=== PATIENT | female | born 1980 | race Caucasian/White ===

== ENCOUNTER 2016-10-13 00:15 | Emergency (ER) | payer OTHER ==
[~2016-10-13] VITALS: Ht 157.5 cm; Wt 81.6 kg
[~2016-10-13 00:15] MED LIST: HYDR-2758 PO; birth control
[2016-10-13 00:21] VITALS: BP 152/84
[2016-10-13] MEDS ORDERED: CLIN300C8 PO (00:25)
--- NOTE | 2016-10-13 00:26 | PHYS DOC ---
Past Medical History Past Medical History: Arthritis, Asthma, Depression, IBS Additional Past Medical Histor: DDD, spinal stenosis,back pain Past Surgical History: Cholecystectomy, Alcohol Use: None Drug Use: None Adult General Chief Complaint Chief Complaint: DENTAL PROBLEM HPI HPI Patient is a 36 year old female presents to the emergency department with complaints of dental pain. She states she's had chronic dental pain and has had increasing discomfort for the last 2 weeks. She states she is scheduled for dental surgery in January. She reports no fever, difficulty with swallowing or phonation. Review of Systems Review of Systems Constitutional: Denies fever or chills [] Eyes: Denies change in visual acuity, redness, or eye pain [] HENT: Denies nasal congestion or sore throat, dental pain [] Respiratory: Denies cough or shortness of breath [] Cardiovascular: No additional information not addressed in HPI [] GI: Denies abdominal pain, nausea, vomiting, bloody stools or diarrhea [] : Denies dysuria or hematuria [] Musculoskeletal: Denies back pain or joint pain [] Integument: Denies rash or skin lesions [] Neurologic: Denies headache, focal weakness or sensory changes [] Endocrine: Denies polyuria or polydipsia [] Allergies Allergies Allergies Coded Allergies Type Severity Reaction Last Updated Verified azithromycin Allergy Severe angio edema 12/11/14 No cyclobenzaprine Allergy Severe angio edema 12/11/14 No prochlorperazine Allergy Severe angio edema 12/11/14 No codeine Allergy Intermediate rash 12/11/14 No Physical Exam Physical Exam Constitutional: Well developed, well nourished, no acute distress, non-toxic appearance. [] HENT: Normocephalic, atraumatic, bilateral external ears normal, oropharynx moist, diffuse dental caries, with diffuse tenderness. There is minimal gingival erythema on the left lower aspect. Eyes: PERRLA, EOMI, conjunctiva normal, no discharge. [] Neck: Normal range of motion, no tenderness, supple, no lymphadenopathy Cardiovascular:Heart rate regular rhythm, no murmur [] Lungs & Thorax: Bilateral breath sounds clear to auscultation [] Abdomen: Bowel sounds normal, soft, no tenderness, no masses, no pulsatile masses. [] Skin: Warm, dry, no erythema, no rash. [] Back: No tenderness, no CVA tenderness. [] Extremities: No tenderness, no cyanosis, no clubbing, ROM intact, no edema. [] Neurologic: Alert and oriented X 3, normal motor function, normal sensory function, no focal deficits noted. [] Psychologic: Affect normal, judgement normal, mood normal. [] EKG EKG [] Radiology/Procedures Radiology/Procedures [] Course & Med Decision Making Course & Med Decision Making Pertinent Labs and Imaging studies reviewed. (See chart for details) [] Dragon Disclaimer Dragon Disclaimer This electronic medical record was generated, in whole or in part, using a voice recognition dictation system. Departure Departure Impression: Primary Impression: Odontalgia Disposition: HOME, SELF-CARE Condition: STABLE Referrals: RIANA BREWER MD (PCP) Patient Instructions: Dental Pain Additional Instructions: Continue ibuprofen and hydrocodone as previously directed and prescribed for chronic pain. Scripts Clindamycin Hcl (CLINDAMYCIN HCL) 300 Mg Capsule 1 CAP PO TID, #30 CAP Prov: MIESHA GUDINO APRN 10/13/16 MIESHA GUDINO APRN Oct 13, 2016 00:26
== END 2016-10-13 00:33 | disposition home or self-care (01) ==
LOC: ER 00:15
DX: K02.9 Dental caries, unspecified (principal); M19.90 Unspecified osteoarthritis, unspecified site; J45.909 Unspecified asthma, uncomplicated; F32.9 Major depressive disorder, single episode, unspecified; K58.9 Irritable bowel syndrome, unspecified; M48.00 Spinal stenosis, site unspecified; Z90.49 Acquired absence of other specified parts of digestive tract; Z88.1 Allergy status to other antibiotic agents; Z88.8 Allergy status to other drugs, medicaments and biological substances; Z88.5 Allergy status to narcotic agent
CPT/HCPCS: 99283

== ENCOUNTER 2017-01-12 02:03 | Emergency (ER) | payer OTHER ==
[~2017-01-12] VITALS: Ht 157.5 cm; Wt 83.9 kg
[~2017-01-12 02:03] MED LIST changes: +CLIN300C8 PO
--- NOTE | 2017-01-12 02:15 | PHYS DOC ---
Past Medical History Past Medical History: Arthritis, Asthma, Depression, IBS Additional Past Medical Histor: DDD, spinal stenosis,back pain Past Surgical History: Cholecystectomy, Alcohol Use: None Drug Use: None Adult General Chief Complaint Chief Complaint: LACERATION/AVULSION HPI HPI Patient is a 36 year old female who presents with cut on her left ring finger. She was given a knife out to make dinner and actually cut her hand. She states her last tetanus shot was May 2010. She states she ran water over it and held pressure on it bolus of make sure she she has again infection so she came to the ER. Review of Systems Review of Systems Constitutional: Denies fever or chills [] Eyes: Denies change in visual acuity, redness, or eye pain [] HENT: Denies nasal congestion or sore throat [] Respiratory: Denies cough or shortness of breath [] Cardiovascular: No additional information not addressed in HPI [] GI: Denies abdominal pain, nausea, vomiting, bloody stools or diarrhea [] : Denies dysuria or hematuria [] Musculoskeletal: Denies back pain or joint pain [] Integument: Denies rash or skin lesions [] Neurologic: Denies headache, focal weakness or sensory changes [] Endocrine: Denies polyuria or polydipsia [] Current Medications Current Medications Current Medications Medications (Trade) Dose Ordered Sig/Anibal Start Time Stop Time Status Last Admin Dose Admin Diphtheria/ Tetanus/Acell Pertussis (Boostrix) 0.5 ml ONCE ONCE 01/12/17 02:45 01/12/17 02:46 UNV Allergies Allergies Allergies Coded Allergies Type Severity Reaction Last Updated Verified azithromycin Allergy Severe angio edema 12/11/14 No cyclobenzaprine Allergy Severe angio edema 12/11/14 No prochlorperazine Allergy Severe angio edema 12/11/14 No codeine Allergy Intermediate rash 12/11/14 No Physical Exam Physical Exam Constitutional: Well developed, well nourished, no acute distress, non-toxic appearance. [] HENT: Normocephalic, atraumatic, bilateral external ears normal, oropharynx moist, no oral exudates, nose normal. [] Eyes: PERRLA, EOMI, conjunctiva normal, no discharge. [] Neck: Normal range of motion, no tenderness, supple, no stridor. [] Cardiovascular:Heart rate regular rhythm, no murmur [] Lungs & Thorax: Bilateral breath sounds clear to auscultation [] Abdomen: Bowel sounds normal, soft, no tenderness, no masses, no pulsatile masses. [] Skin: Warm, dry, no erythema, no rash. 7 mm laceration of the fourth digit on the left hand at the tip going from the palmar surface toward the nail Back: No tenderness, no CVA tenderness. [] Extremities: No tenderness, no cyanosis, no clubbing, ROM intact, no edema. [] Neurologic: Alert and oriented X 3, normal motor function, normal sensory function, no focal deficits noted. [] Psychologic: Affect normal, judgement normal, mood normal. [] Current Patient Data Vital Signs Vital Signs Date Time Temp Pulse Resp B/P (MAP) Pulse Ox O2 Delivery O2 Flow Rate FiO2 01/12/17 02:30 98.7 91 18 96 Room Air 98.7 EKG EKG [] Radiology/Procedures Radiology/Procedures [] Impressions: Finger laceration Course & Med Decision Making Course & Med Decision Making Pertinent Labs and Imaging studies reviewed. (See chart for details) We updated her tetanus, laceration was closed with Dermabond. Return precautions given. Dragon Disclaimer Dragon Disclaimer This electronic medical record was generated, in whole or in part, using a voice recognition dictation system. Departure Departure Impression: Primary Impression: Laceration Disposition: 01 HOME, SELF-CARE Condition: STABLE Referrals: RIANA BREWER MD (PCP) Patient Instructions: Laceration Care, Adult, [id number] Additional Instructions: Your laceration repaired with glue. This should follow off over the next 7-10 days. Please keep an eye on it for any signs of infection. If he becomes red swollen or painful please return back to emergency department. Laceration Repair Lac Repair Indication: Fourth digit laceration Procedure: The patient was placed in the appropriate position and the area was then sterile water. The laceration was and closed with Dermabond. The wound area was then dressed with Band-Aid. Total repaired wound length: 8 mm. The patient tolerated the procedure well. Complications: No complications noted. ANDREY ORTIZ MD Jan 12, 2017 02:15
[2017-01-12 02:30] VITALS: BP 152/87
[2017-01-12] MEDS ORDERED: DIPHTH,PERTUSS(ACELL),TET TOX 0.5 ML DISP.SYRIN. VAX IM ONE (03:00)
== END 2017-01-12 03:00 | disposition home or self-care (01) ==
LOC: ER 02:03
DX: S61.215A Laceration without foreign body of left ring finger without damage to nail, initial encounter (principal); J45.909 Unspecified asthma, uncomplicated; K58.9 Irritable bowel syndrome, unspecified; Z88.5 Allergy status to narcotic agent; Z88.1 Allergy status to other antibiotic agents; Z88.8 Allergy status to other drugs, medicaments and biological substances; W26.0XXA Contact with knife, initial encounter; Y93.89 Activity, other specified; Y99.8 Other external cause status; Y92.89 Other specified places as the place of occurrence of the external cause
CPT/HCPCS: 12001; 90471; 90715; 99283-25

== ENCOUNTER 2017-03-21 17:27 | Emergency (ER) | payer OTHER ==
[~2017-03-21] VITALS: Ht 160 cm; Wt 86.2 kg
[2017-03-21 17:35] VITALS: BP 137/80
--- NOTE | 2017-03-21 17:50 | PHYS DOC ---
Past Medical History Past Medical History: Arthritis, Asthma, Depression, IBS Additional Past Medical Histor: DDD, spinal stenosis,back pain Past Surgical History: Cholecystectomy, Alcohol Use: None Drug Use: None Adult General Chief Complaint Chief Complaint: FINGER INJURY HPI HPI Patient is a 36 year old female with history of arthritis asthma and depression who presents today with moderate pain to the right index finger after it got smashed in a car door today, patient states her pain is worse on flexion and extension of the finger though she is able to flex and extend the finger. Review of Systems Review of Systems Constitutional: Denies fever or chills [] Musculoskeletal: right index finger pain Integument: Denies rash or skin lesions [] Neurologic: Denies headache, focal weakness or sensory changes [] All other systems were reviewed and found to be within normal limits, except as documented in this note. Current Medications Current Medications Current Medications Medications (Trade) Dose Ordered Sig/Anibal Start Time Stop Time Status Last Admin Dose Admin Diphtheria/ Tetanus/Acell Pertussis (Boostrix) 0.5 ml ONCE ONCE 03/21/17 18:00 03/21/17 18:01 DC Ibuprofen (Motrin) 800 mg 1X ONCE 03/21/17 18:00 03/21/17 18:01 DC 03/21/17 18:03 800 MG Allergies Allergies Allergies Coded Allergies Type Severity Reaction Last Updated Verified azithromycin Allergy Severe angio edema 12/11/14 No cyclobenzaprine Allergy Severe angio edema 12/11/14 No prochlorperazine Allergy Severe angio edema 12/11/14 No codeine Allergy Intermediate rash 12/11/14 No Physical Exam Physical Exam Constitutional: Well developed, well nourished, no acute distress, non-toxic appearance. [] Skin: Warm, dry, no erythema, no rash. [] Back: No tenderness, no CVA tenderness. [] Extremities: Right index finger with bruising below the nail bed as well as a 5 % subungual hematoma. Tenderness on palpation of the distal end of the right index finger. Patient able to flex and extend the right index finger at the MIP PIP and DIP joints. Adequate radial sensation to the right index finger. +2 right radial pulse. Cap refill less than 2 seconds the right index finger. Neurologic: Alert and oriented X 3, normal motor function, normal sensory function, no focal deficits noted. [] Psychologic: Affect normal, judgement normal, mood normal. [] Current Patient Data Vital Signs Vital Signs Date Time Temp Pulse Resp B/P (MAP) Pulse Ox O2 Delivery O2 Flow Rate FiO2 03/21/17 17:35 98.2 100 18 99 Room Air 98.2 EKG EKG [] Radiology/Procedures Radiology/Procedures [] Course & Med Decision Making Course & Med Decision Making Pertinent Labs and Imaging studies reviewed. (See chart for details) Patient has right index finger contusion. Right index finger x-rays interpreted by Dr. Acevedo were negative for any acute findings. Tetanus vaccine was up-to- dated. Right index finger was splinted by the technical project manager neurovascular exam is intact. Patient will be discharged with instructions to follow-up with hand surgeon at Dr. Dominguez's office in 1 weeks as needed. Ice elevation encouraged. Anti-inflammatories recommended. Dragon Disclaimer Dragon Disclaimer This electronic medical record was generated, in whole or in part, using a voice recognition dictation system. Departure Departure Impression: Primary Impression: Subungual hematoma of finger Additional Impression: Contusion of finger, right Disposition: 01 HOME, SELF-CARE Condition: STABLE Referrals: RIANA BREWER MD (PCP) LIUDMILA DOMINGUEZ MD follow up with Dr. Astorga hand surgeon at DR. Dominguez's office in one week Patient Instructions: Contusion, Subungual Hematoma, [id number] Additional Instructions: You were seen with right index finger contusion. Ice and elevate the extremity. Apply Neosporin to the bruised area. Follow-up with orthopedic doctor provided in one week. Take [id number] anti-inflammatories as needed. Problem Qualifiers Primary Impression: Subungual hematoma of finger Encounter type: initial encounter Qualified Codes: S60.10XA - Contusion of unspecified finger with damage to nail, initial encounter Additional Impression: Contusion of finger, right Encounter type: initial encounter Finger: index finger Damage to nail status: without damage Qualified Codes: S60.021A - Contusion of right index finger without damage to nail, initial encounter TRACY HEWITT COPY READER Mar 21, 2017 17:50
[2017-03-21] MEDS ORDERED: IBUPROFEN 800 MG TABLET. PO ONE (18:00)
[2017-03-21] MEDS ORDERED: DIPHTH,PERTUSS(ACELL),TET TOX 0.5 ML DISP.SYRIN. VAX IM ONE (18:00)
--- NOTE | 2017-03-22 07:51 | RAD ---
THREE VIEWS right FINGER Clinical History: finger pain index , slammed in car door today. Technique: AP view of the hand, as well as lateral and oblique collimated views of the index finger were obtained. Comparison: None. Findings: There is no acute fracture or dislocation. There is no radiopaque foreign body. The soft tissues are radiographically normal. There is chronic deformity of the distal tuft of the fifth finger. IMPRESSION: No acute fracture.
== END 2017-03-21 18:17 | disposition home or self-care (01) ==
LOC: ER 17:27
DX: S60.021A Contusion of right index finger without damage to nail, initial encounter (principal); M19.90 Unspecified osteoarthritis, unspecified site; J45.909 Unspecified asthma, uncomplicated; F32.9 Major depressive disorder, single episode, unspecified; K58.9 Irritable bowel syndrome, unspecified; Z88.1 Allergy status to other antibiotic agents; Z88.5 Allergy status to narcotic agent; Z88.8 Allergy status to other drugs, medicaments and biological substances; Z90.49 Acquired absence of other specified parts of digestive tract; W23.0XXA Caught, crushed, jammed, or pinched between moving objects, initial encounter; Y93.89 Activity, other specified; Y92.89 Other specified places as the place of occurrence of the external cause; Y99.8 Other external cause status
CPT/HCPCS: 29130; 73140; 90471; 90715; 99284-25

== ENCOUNTER → 2019-02-10 | Outpatient (CLI) | payer MEDICAID ==
[2018-10-22 07:00] VITALS: BP 107/66
[~2019-02-10] MED LIST changes: -HYDR-2758 PO; +HYDR-2761 PO; +RANI-348 PO
--- NOTE | 2019-02-10 09:54 | RAD ---
MR#: [id number] Date of Study: 02/10/2019 Ordering Physician: LIBBY POWERS, Referring Physician: LIBBY POWERS, Tech: Kenneth Hill MBA, RDMS, RVT, RDCS, RTR APPROVED REPORT Patient Location: OUT-PATIENT Laterality:Bilateral Indications Bruit Doppler Spectral Velocity Analysis Right Left pCCA 124/24 cm/spCCA 136/25 cm/s mCCA 112/24 cm/smCCA 125/36 cm/s dCCA 104/31 cm/sdCCA 112/32 cm/s Bulb 96/25 cm/sBulb 86/27 cm/s ECA 143/ cm/sECA 121/ cm/s pICA 86/29 cm/spICA 115/38 cm/s My 92/35 cm/smICA 118/48 cm/s dICA 90/41 cm/sdICA 120/52 cm/s Vert. 46/ cm/sVert. 50/ cm/s Subcl. 147/ cm/sSubcl. 123/ cm/s ICA/CCA 0.74ICA/CCA 0.88 Findings Grayscale images of the bilateral common carotid arteries, external and internal carotid vessels reve al mild intimal hyperplasia but no obvious evidence of significant obstructive disease. Normal flow velocity profiles are noted in the common carotid, external and internal carotid vessels. Overall based on velocity criteria there is 0 to less than 50% stenosis. Bilateral subclavian and vertebral velocities are within normal limits. Critical Notification Critical Value: No <Conclusion> 1. No significant carotid occlusive disease bilaterally. Signed by : Salomón Rooney, Electronically Approved : 02/10/2019 09:54:43
== END | disposition home or self-care (01) ==
LOC: US 08:51
PROVIDERS: ATTEND Internal Medicine Cardiovascular Disease
DX: R09.89 Other specified symptoms and signs involving the circulatory and respiratory systems (principal)
CPT/HCPCS: 93880

== ENCOUNTER → 2020-04-24 | Outpatient (CLI) | payer MEDICAID ==
[2018-10-22 07:00] VITALS: BP 107/66
[~2020-04-24] MED LIST changes: -CLIN300C8 PO; +CLIN300C9 PO; -RANI-348 PO; +RANI-369 PO
--- NOTE | 2020-04-24 16:08 | KCIC ---
2 views of the abdomen 04/24/2020 INDICATION: Abdominal pain constipation x2 weeks COMPARISON STUDY: Abdominal radiograph January 28, 2008. FINDINGS: The bowel gas nonobstructive. Mildly increased stool throughout the right colon and proxima l transverse colon. The distal colon appears to be relatively decompressed. Multiple pelvic phleboli ths are noted. Prior cholecystectomy noted. No gross pneumoperitoneum is identified. No acute osseous changes are seen. IMPRESSION: Mildly increased stool the proximal colon. Nonobstructive bowel gas pattern. Electronically signed by: Kadeem Reynoso MD (04/24/2020 4:06 PM) [id number]
== END ==
LOC: KCIC 11:40
PROVIDERS: ATTEND Family Medicine
DX: R10.9 Unspecified abdominal pain (principal); I87.8 Other specified disorders of veins; Z90.49 Acquired absence of other specified parts of digestive tract
CPT/HCPCS: 74018

== ENCOUNTER → 2020-05-10 | Outpatient (CLI) | payer MEDICAID ==
[2018-10-22 07:00] VITALS: BP 107/66
--- NOTE | 2020-05-10 13:51 | KCIC ---
EXAM: Pelvis CT without contrast. HISTORY: Pelvic pain. TECHNIQUE: Computed tomographic images of the pelvis were obtained without contrast. *One or more of the following individualized dose reduction techniques were utilized for this examina tion: 1. Automated exposure control. 2. Adjustment of the mA and/or kV according to patient size. 3. Use of iterative reconstruction technique. COMPARISON: None. FINDINGS: There is no appendicitis. There is no bowel obstruction. The bladder is unremarkable. The u terus is unremarkable. There is a 1.2 cm suspected physiologic dominant left ovarian follicle. There are multiple pelvic phleboliths. There is no acute or suspicious osseous finding. There is no lymphad enopathy. There is no hernia. IMPRESSION: No acute finding. Electronically signed by: Yumiko Cardoso MD (05/10/2020 1:48 PM) [id number]
== END ==
LOC: KCIC CT 12:42
PROVIDERS: ATTEND Family Medicine
DX: N83.02 Follicular cyst of left ovary (principal); I87.8 Other specified disorders of veins
CPT/HCPCS: 72192

== ENCOUNTER 2021-02-05 10:26 | Emergency (ER) | payer MEDICAID ==
[~2021-02-05] VITALS: Ht 157.5 cm; Wt 128.0 kg
[2021-02-05 11:07] VITALS: BP 142/86
[2021-02-05] MEDS ORDERED: CLIN150C16 PO (11:11)
--- NOTE | 2021-02-05 11:12 | PHYS DOC ---
Past Medical History Past Medical History: Arthritis, Asthma, Depression, IBS Additional Past Medical Histor: DDD, spinal stenosis,back pain Past Surgical History: Cholecystectomy, Additional Past Surgical Histo: fused vertebrae Smoking Status: Current Every Day Smoker Alcohol Use: None Drug Use: Marijuana General Adult EDM: Chief Complaint: DENTAL PROBLEM HPI: HPI: Patient is a 40 year old female who presents with many dental caries and broken teeth and she has had a root canal and some teeth pulled on the upper right side and now she is having pain and inflammation on the upper left side and tooth #10 through 12. She states that usually put her on clindamycin she states that she is allergic to penicillins. She states she does have a dentist and she will call them today to get an appointment. She states she is been taking hydrocodone for her pain that she takes for her back pain but also ibuprofen. She states ibuprofen works better. Patient has a history of smoking, fused vertebrae's, C- section,DDD, spinal stenosis, depression, IBS, asthma, cholecystectomy. She is rating her pain an 8 out of 10 at this time. She denies fever, facial swelling, body aches, headache, dizziness, nausea, vomiting. Review of Systems: Review of Systems: Constitutional: Denies fever or chills. [] Eyes: Denies change in visual acuity. [] HENT: Denies nasal congestion or sore throat. + dental pain [] Respiratory: Denies cough or shortness of breath. [] Cardiovascular: Denies chest pain or edema. [] GI: Denies abdominal pain, nausea, vomiting, bloody stools or diarrhea. [] : Denies dysuria. [] Musculoskeletal: Denies back pain or joint pain. [] Integument: Denies rash. [] Neurologic: Denies headache, focal weakness or sensory changes. [] Endocrine: Denies polyuria or polydipsia. [] Lymphatic: Denies swollen glands. [] Psychiatric: Denies depression or anxiety. [] Heart Score: C/O Chest Pain: No Allergies: Allergies: Allergies Coded Allergies Type Severity Reaction Last Updated Verified azithromycin Allergy Severe angio edema 10/21/18 Yes cyclobenzaprine Allergy Severe angio edema 10/21/18 Yes prochlorperazine Allergy Severe angio edema 10/21/18 Yes codeine Allergy Intermediate rash 10/21/18 Yes Physical Exam: PE: Constitutional: Well developed, well nourished, no acute distress, non-toxic appearance. [] HENT: Normocephalic, atraumatic, bilateral external ears normal, oropharynx moist, no oral exudates, nose normal. Many dental caries and broken teeth. No facial swelling. No abscess. [] Eyes: PERRLA, EOMI, conjunctiva normal, no discharge. [] Neck: Normal range of motion, no tenderness, supple, no stridor. [] Cardiovascular:Heart rate regular rhythm, no murmur [] Lungs & Thorax: Bilateral breath sounds clear to auscultation [] Abdomen: Bowel sounds normal, soft, no tenderness, no masses, no pulsatile masses. [] Skin: Warm, dry, no erythema, no rash. [] Back: No tenderness, no CVA tenderness. [] Extremities: No tenderness, no cyanosis, no clubbing, ROM intact, no edema. [] Neurologic: Alert and oriented X 3, normal motor function, normal sensory function, no focal deficits noted. [] Psychologic: Affect normal, judgement normal, mood normal. [] EKG: EKG: [] Radiology/Procedures: Radiology/Procedures: [] Course & Med Decision Making: Course & Med Decision Making Pertinent Labs and Imaging studies reviewed. (See chart for details) See HPI. Alert and oriented x4. Ambulatory steady gait. Speaks in full clear sentences. Afebrile. Patient states she is calling her dentist today. Many broken teeth throughout her mouth. Gumline redness. No bruits are showing. No facial swelling. No abscess felt or seen. No swelling under her tongue or pain with palpation. [] Dragon Disclaimer: Dragon Disclaimer: This electronic medical record was generated, in whole or in part, using a voice recognition dictation system. Departure Departure Impression: Primary Impression: Pain, dental Disposition: HOME / SELF CARE / HOMELESS Condition: STABLE Referrals: RIANA BREWER MD (PCP) Patient Instructions: Dental Caries Additional Instructions: Follow-up with a dentist as soon as possible. Call them today to get an appointment. Continue taking all your medications as prescribed. Scripts Clindamycin Hcl (CLINDAMYCIN HCL) 150 Mg Capsule 150 MG PO TID for 10 Days, #30 CAP Prov: FAUSTINA BANKS LEAD SYSTEMS DEVELOPER 02/05/21 FAUSTINA BANKS APRN Feb 05, 2021 11:12
== END 2021-02-05 11:17 | disposition home or self-care (01) ==
LOC: ER 10:26
DX: K08.89 Other specified disorders of teeth and supporting structures (principal); J45.909 Unspecified asthma, uncomplicated; K58.9 Irritable bowel syndrome, unspecified; F17.200 Nicotine dependence, unspecified, uncomplicated; Z88.1 Allergy status to other antibiotic agents; Z88.5 Allergy status to narcotic agent; Z88.8 Allergy status to other drugs, medicaments and biological substances
CPT/HCPCS: 99283